=== PATIENT | male | born 1960 | race African-American/Black ===

== ENCOUNTER 2021-08-26 10:47 | Inpatient (IN) | payer MEDICAID ==
[~2021-08-26] VITALS: Ht 175.3 cm; Wt 64.9 kg
[~2021-08-26 10:47] MED LIST: ACET325C7 PO; IBUP-2741 PO
[2021-08-26] MEDS ORDERED: LORAZEPAM 2MG/ML CPJ IV ONE (13:45)
[2021-08-26] MEDS ORDERED: FOLIC ACID 1 MG, THIAMINE HCL 100 MG, MVI, ADULT NO.1 10 ML in DEXTROSE 5% WATER 1,000 ML IV ONE (13:45)
[2021-08-26] MEDS ORDERED: LEVETIRACETAM 500MG PREMIX 100 ML IV ONE (13:45)
[2021-08-26 14:13] LABS: BASOPHILS % 0.9 % (0.0-2.0); EOSINOPHILS % 0.9 % (0.0-5.0); HEMATOCRIT. 37.6 % (42.0-52.0); HEMOGLOBIN. 12.4 g/dL (14.0-18.0); LYMPHOCYTES % 33.3 % (20.0-50.0); MEAN CORPUSCULAR HEMOGLOBIN 32.4 pg (28.0-32.0); MEAN CORPUSCULAR VOLUME 98.4 fL (80.0-94.0); MEAN PLATELET VOLUME 7.9 fl (7.4-10.4); NEUTROPHILS % 52.9 % (40.0-76.0); PLATELET 172 x1000/uL (130-400); RED BLOOD CELL COUNT 3.82 mill/uL (4.7-6.1); RED CELL DISTRIBUTION WIDTH 12.9 % (11.6-14.6)
[2021-08-26 14:14] LABS: CHLORIDE 106 mEq/L (98-107)
[2021-08-26 14:19] LABS: ETHANOL BLOOD < 10 mg/dL
[2021-08-26] MEDS ORDERED: GUAIFENESIN 200MG/10ML SUGAR FREE UDC PO PRN (23:30)
[2021-08-26] MEDS ORDERED: DIPHENHYDRAMINE 50MG/ML VIAL IV PRN (23:30)
[2021-08-26] MEDS ORDERED: DOCUSATE SODIUM 100MG CAPSULE PO PRN (23:30)
[2021-08-26] MEDS ORDERED: CLONIDINE 0.1MG TABLET PO PRN (23:30)
[2021-08-26] MEDS ORDERED: IPRATROPIUM/ALBUTEROL 0.5-3(2.5)MG/3ML NEB HHN PRN (23:30)
[2021-08-26] MEDS ORDERED: ACETAMINOPHEN 325MG TABLET PO PRN (23:30)
[2021-08-26] MEDS ORDERED: ONDANSETRON HCL 4MG/2ML INJ IV PRN (23:30)
[2021-08-26] MEDS ORDERED: LORAZEPAM 2MG/ML CPJ IV PRN (23:30)
[2021-08-26] MEDS ORDERED: MAGNESIUM/ALUMINUM HYDROXIDE/SIMETHICONE 30ML UDC PO PRN (23:30)
[2021-08-26] MEDS ORDERED: HYDRALAZINE 20MG/ML VIAL IV PRN (23:30)
[2021-08-26] MEDS ORDERED: MORPHINE SULFATE 2 MG/ML CPJ (NOT FOR IM USE) IV PRN (23:30)
[2021-08-26] MEDS ORDERED: NALOXONE HCL 0.4MG/ML VIAL IV PRN (23:45)
[2021-08-27] MEDS: SODIUM CHLORIDE 0.45% 1,000 ML IV SCH ×2 (01:53→13:45)
[2021-08-27 04:20] VITALS: BP 135/79
[2021-08-27] MEDS: SODIUM CHLORIDE 0.9% INJ 3ML FLUSH IVF SCH ×3 (05:14→21:48)
[2021-08-27 08:00] VITALS: BP 121/69
[2021-08-27] MEDS: ENOXAPARIN 40MG/0.4ML SYR SUBCUT SCH (10:53)
[2021-08-27] MEDS: THIAMINE HCL 100MG TABLET PO SCH (10:53)
[2021-08-27] MEDS: FOLIC ACID 1MG TABLET PO SCH (10:53)
[2021-08-27] MEDS: MULTIVITAMINS,THER W-MINERALS TABLET PO SCH (10:56)
[2021-08-27] MEDS ORDERED: CEFTRIAXONE 1 G PREMIX 50 ML IV SCH (11:00)
[2021-08-27 12:00] VITALS: BP 127/72
[2021-08-27] MEDS: CEFTRIAXONE 1,000 MG in DEXTROSE 5% WATER 50 ML IV SCH (13:45)
[2021-08-27 16:00] VITALS: BP 132/75
[2021-08-27 17:31] LABS: EOSINOPHILS % 1.1 % (0.0-5.0); HEMATOCRIT. 38.2 % (42.0-52.0); HEMOGLOBIN. 12.5 g/dL (14.0-18.0); LYMPHOCYTES % 25.9 % (20.0-50.0); MEAN CORPUSCULAR VOLUME 97.3 fL (80.0-94.0); MEAN PLATELET VOLUME 8.5 fl (7.4-10.4); MONOCYTES % 12.4 % (2.0-8.0); NEUTROPHILS % 59.6 % (40.0-76.0); PLATELET 177 x1000/uL (130-400); RED BLOOD CELL COUNT 3.92 mill/uL (4.7-6.1); RED CELL DISTRIBUTION WIDTH 12.4 % (11.6-14.6)
[2021-08-27 17:58] LABS: CHLORIDE 99 mEq/L (98-107)
[2021-08-27 18:52] LABS: CLARITY URINE CLEAR (CLEAR); COLOR URINE YELLOW (YELLOW); KETONES URINE NEGATIVE (NEGATIVE); LEUKOCYTE ESTERASE URINE 1+ (NEGATIVE); NITRITE URINE NEGATIVE (NEGATIVE); OCCULT BLOOD URINE NEGATIVE (NEGATIVE); PROTEIN URINE NEGATIVE (NEGATIVE); SPECIFIC GRAVITY URINE 1.005 (1.005-1.030)
[2021-08-27 20:00] VITALS: BP 152/89
[2021-08-28] VITALS: BP 145/85
[2021-08-28 04:00] VITALS: BP 116/76
[2021-08-28] MEDS: SODIUM CHLORIDE 0.45% 1,000 ML IV SCH ×2 (04:37→17:19)
[2021-08-28] MEDS: SODIUM CHLORIDE 0.9% INJ 3ML FLUSH IVF SCH ×3 (05:43→22:35)
[2021-08-28 08:00] VITALS: BP 134/92
[2021-08-28] MEDS: FOLIC ACID 1MG TABLET PO SCH (08:55)
[2021-08-28] MEDS: THIAMINE HCL 100MG TABLET PO SCH (08:55)
[2021-08-28] MEDS: MULTIVITAMINS,THER W-MINERALS TABLET PO SCH (08:55)
[2021-08-28] MEDS: ENOXAPARIN 40MG/0.4ML SYR SUBCUT SCH (08:56)
[2021-08-28 10:12] LABS: T4 FREE 1.2 ng/dL (0.76-1.46)
[2021-08-28 12:00] VITALS: BP 144/85
[2021-08-28] MEDS: CEFTRIAXONE 1,000 MG in DEXTROSE 5% WATER 50 ML IV SCH (12:58)
[2021-08-28 16:00] VITALS: BP 132/87
[2021-08-28 16:02] LABS: CREATINE KINASE 134 IU/L (39-308)
[2021-08-28 16:04] LABS: CREATINE KINASE MB FRACTION < 1.0 ng/mL (0.5-3.6)
[2021-08-28 20:00] VITALS: BP 145/94
[2021-08-29] VITALS (7 sets, daily range): BP systolic 125–168; BP diastolic 75–97
[2021-08-29 01:23] LABS: CREATINE KINASE 120 IU/L (39-308)
[2021-08-29 01:24] LABS: CREATINE KINASE MB FRACTION < 1.0 ng/mL (0.5-3.6)
[2021-08-29] MEDS: SODIUM CHLORIDE 0.9% INJ 3ML FLUSH IVF SCH ×3 (05:28→21:26)
[2021-08-29] MEDS: SODIUM CHLORIDE 0.45% 1,000 ML IV SCH ×2 (05:28→20:17)
[2021-08-29 06:52] LABS: CREATINE KINASE 120 IU/L (39-308)
[2021-08-29 06:55] LABS: CREATINE KINASE MB FRACTION < 1.0 ng/mL (0.5-3.6)
[2021-08-29] MEDS: MULTIVITAMINS,THER W-MINERALS TABLET PO SCH (08:45)
[2021-08-29] MEDS: THIAMINE HCL 100MG TABLET PO SCH (08:45)
[2021-08-29] MEDS: ENOXAPARIN 40MG/0.4ML SYR SUBCUT SCH (08:45)
[2021-08-29] MEDS: FOLIC ACID 1MG TABLET PO SCH (08:45)
[2021-08-29] MEDS: CEFTRIAXONE 1,000 MG in DEXTROSE 5% WATER 50 ML IV SCH (11:21)
[2021-08-30] VITALS: BP 158/88
[2021-08-30 04:00] VITALS: BP 125/71
[2021-08-30 05:27] LABS: *AMPHETAMINES SCREEN URINE NEGATIVE (NEGATIVE); *BARBITURATES SCREEN URINE NEGATIVE (NEGATIVE); *BENZODIAZEPINES SCREEN URINE NEGATIVE (NEGATIVE)
[2021-08-30 05:28] LABS: *COCAINE SCREEN URINE NEGATIVE (NEGATIVE); CANNABINOID URINE SCREEN PRESUMTIVE POSITIVE (NEGATIVE); METHADONE URINE SCREEN NEGATIVE (NEGATIVE); OPIATES URINE SCREEN NEGATIVE (NEGATIVE); PHENCYCLIDINE URINE SCREEN NEGATIVE (NEGATIVE)
[2021-08-30] MEDS: SODIUM CHLORIDE 0.9% INJ 3ML FLUSH IVF SCH ×2 (05:46→12:49)
[2021-08-30 08:00] VITALS: BP 135/86
[2021-08-30] MEDS: FOLIC ACID 1MG TABLET PO SCH (08:29)
[2021-08-30] MEDS: MULTIVITAMINS,THER W-MINERALS TABLET PO SCH (08:29)
[2021-08-30] MEDS: SODIUM CHLORIDE 0.45% 1,000 ML IV SCH (08:29)
[2021-08-30] MEDS: THIAMINE HCL 100MG TABLET PO SCH (08:29)
[2021-08-30] MEDS: ENOXAPARIN 40MG/0.4ML SYR SUBCUT SCH (08:30)
[2021-08-30 12:00] VITALS: BP 130/73
[2021-08-30] MEDS: CEFTRIAXONE 1,000 MG in DEXTROSE 5% WATER 50 ML IV SCH (12:49)
[2021-08-30 14:23] VITALS: BP 142/85
[2021-08-30 16:00] VITALS: BP 142/85
== END 2021-08-30 18:37 | disposition home or self-care (01) | DRG 48 ==
LOC: ER 10:47 → MICUSO 16:02 → ENRESERV 21:53 → CANRESERV 21:53 → 8WST 08-27 03:49
PROVIDERS: ADMIT Internal Medicine; ATTEND Internal Medicine
PROC: 4A10X4Z Monitoring of Central Nervous Electrical Activity, External Approach (ICD-10-PCS; principal; 2021-08-29)
DX: G90.8 Other disorders of autonomic nervous system (principal); F10.139 Alcohol abuse with withdrawal, unspecified; G31.9 Degenerative disease of nervous system, unspecified; Y90.9 Presence of alcohol in blood, level not specified; R50.9 Fever, unspecified; Z79.1 Long term (current) use of non-steroidal anti-inflammatories (NSAID); Z71.41 Alcohol abuse counseling and surveillance of alcoholic
CPT/HCPCS: 36415; 71045; 80048; 80053; 80061; 80305; 80320; 81003; 82550; 82553; 83036; 83880; 84439; 84443; 84484; 85025; 85379; 93005; 93306; 93970; 95816; 99285; J0696; J1650; J1953; J2060; J3411; J3490; J7060; J7070; G0480